=== PATIENT | female | born 1995 | race Caucasian/White ===

== ENCOUNTER → 2018-07-23 09:46 | Outpatient (CLI) | payer MEDICAID, OTHER, SELFPAY ==
[2014-01-06 14:11] VITALS: BMI 26.3
[2018-07-23 10:43] LABS: AST(SGOT) 169 U/L (15-37); Alanine Aminotransfer ALT/SGPT 279 U/L (13-56)
== END ==
PROVIDERS: Family Provider Family Medicine; PCP Family Medicine
DX: E84.9 Cystic fibrosis, unspecified (principal)
CPT/HCPCS: 36415; 82247; 84450; 84460

== ENCOUNTER → 2018-07-25 09:25 | Outpatient (CLI) | payer MEDICAID, OTHER, SELFPAY ==
[2018-07-25 10:14] LABS: AST(SGOT) 128 U/L (15-37); Alanine Aminotransfer ALT/SGPT 214 U/L (13-56); Albumin, Serum 3.7 g/dL (3.2-5.0); Alkaline Phosphatase 248 U/L (45-117); Bilirubin, Direct 0.16 mg/dL (0.00-0.30); GGTP 54 U/L (5-55); Globulin 3.9 g/dL (2.2-4.2); Protein, Total 7.6 g/dL (6.4-8.2)
== END ==
PROVIDERS: Family Provider Family Medicine; PCP Family Medicine
DX: E84.9 Cystic fibrosis, unspecified (principal)
CPT/HCPCS: 36415; 80076; 82977

== ENCOUNTER → 2018-07-30 08:54 | Outpatient (CLI) | payer MEDICAID, OTHER, SELFPAY ==
[2014-01-06 14:11] VITALS: BMI 26.3
[2018-07-30 10:44] LABS: AST(SGOT) 64 U/L (15-37); Alanine Aminotransfer ALT/SGPT 103 U/L (13-56); Albumin, Serum 3.7 g/dL (3.2-5.0); Alkaline Phosphatase 156 U/L (45-117); Bilirubin, Direct 0.11 mg/dL (0.00-0.30); GGTP 37 U/L (5-55); Globulin 3.7 g/dL (2.2-4.2); Protein, Total 7.4 g/dL (6.4-8.2)
== END ==
PROVIDERS: Family Provider Family Medicine; PCP Family Medicine
DX: E84.9 Cystic fibrosis, unspecified (principal); R74.0 Nonspecific elevation of levels of transaminase and lactic acid dehydrogenase [LDH]
CPT/HCPCS: 36415; 80076; 82977

== ENCOUNTER → 2018-08-04 12:59 | Outpatient (CLI) | payer MEDICAID, OTHER, SELFPAY ==
--- NOTE | 2018-08-04 13:55 | RAD_ITS ---
STUDY: X-RAY - ACUTE ABDOMINAL SERIES REASON FOR EXAM: Female, 23 years old. Acute and chronic constipation TECHNIQUE: Single view of the chest. Supine, and erect view(s) of the abdomen were obtained. COMPARISON: None. FINDINGS: The lungs are clear and expanded. Normal size heart. Normal mediastinum and kristine. Normal visualized pulmonary arteries. Normal visualized aortic arch and descending thoracic aorta. There is a moderate amount of colonic fecal material. The soft tissue structures of the abdomen and pelvis are unremarkable. Normal visualized osseous structures. RAD/Acute Abdomen Inc Chest IMPRESSION: Clear lungs. Moderate constipation. Electronically Signed: Abdias Ortiz DO at 8:47 EST Tel , Service support ,
== END ==
LOC: RAD.FUTURE 13:04 → RAD 13:51
PROVIDERS: Family Provider Family Medicine; PCP Family Medicine
DX: K59.00 Constipation, unspecified (principal); E84.9 Cystic fibrosis, unspecified; K86.89 Other specified diseases of pancreas
CPT/HCPCS: 74022

== ENCOUNTER → 2018-08-11 10:40 | Outpatient (CLI) | payer MEDICAID, OTHER, SELFPAY ==
[2018-08-11 12:04] LABS: AST(SGOT) 27 U/L (15-37); Alanine Aminotransfer ALT/SGPT 38 U/L (13-56); Albumin, Serum 3.8 g/dL (3.2-5.0); Alkaline Phosphatase 100 U/L (45-117); Bilirubin, Direct 0.12 mg/dL (0.00-0.30); GGTP 27 U/L (5-55); Globulin 4.1 g/dL (2.2-4.2); Protein, Total 7.9 g/dL (6.4-8.2)
== END ==
PROVIDERS: Family Provider Family Medicine; PCP Family Medicine
DX: E84.9 Cystic fibrosis, unspecified (principal); R74.0 Nonspecific elevation of levels of transaminase and lactic acid dehydrogenase [LDH]
CPT/HCPCS: 36415; 80076; 82977

== ENCOUNTER → 2019-12-07 07:26 | Outpatient (CLI) | payer MEDICAID, OTHER, SELFPAY ==
[2014-01-06 14:11] VITALS: BMI 26.3
[2019-12-07 07:49] LABS: Absolute Lymphocyte Count 1.94 X10^3/uL (0.83-4.51); Absolute Neutrophil Count 3.1 X10^3/uL (2.0-7.7); Basophil# 0.02 X10^3/uL; Basophil% 0.4 % (0-1); Eosinophil# 0.16 X10^3/uL; Eosinophils% 2.8 % (0-5); Hematocrit 38.2 % (37-47); Hemoglobin 12.2 g/dL (12.0-15.0); Lymphocyte # 1.94 X10^3/ul (4.0); Lymphocyte % 34.4 % (19-41); Mean Corp Hgb Conc 31.9 g/dL (32-36); Mean Corpuscular Hgb 28.4 pg (27.0-32.0); Mean Platelet Vol. 8.9 fl (6.2-12.0); Monocyte# 0.45 X10^3/uL; NRBC Flagged by Analyzer 0 % (0-5); Neutrophil # 3.06 X10^3/uL (2.7-7.7); Neutrophil % 54.2 % (47-70); Platelet Count 217 K/mm3 (150-450); RBC Distribution Width CV 14.3 % (11.6-14.6); RBC Distribution Width SD 45.9 fl (35.1-43.9); Red Blood Count 4.29 M/mm3 (4.2-5.4); White Blood Count 5.6 K/mm3 (4.4-11.0)
[2019-12-07 08:18] LABS: Hemoglobin A1c 6.1 % (3.8-5.6)
[2019-12-07 08:26] LABS: AST(SGOT) 11 U/L (15-37); Alanine Aminotransfer ALT/SGPT 21 U/L (13-56); Albumin, Serum 3.7 g/dL (3.2-5.0); Alkaline Phosphatase 60 U/L (45-117); Anion Gap 6 (5-15); BUN 18 mg/dL (7-18); BUN/Creat Ratio 22.5 RATIO (10-20); CRP < 2.90 mg/L (0.0-3.0); Chloride 105 mmol/L (98-107); EST Glomerular Filtration Rate 93 mL/min (>60); Est Glom Filt Rate - Afr Amer 113 mL/min (>60); GGTP 10 U/L (5-55); Globulin 3.6 g/dL (2.2-4.2); Glucose 138 mg/dL (74-106); Potassium 4.2 mmol/L (3.5-5.1); Protein, Total 7.3 g/dL (6.4-8.2); Sodium Level 137 mmol/L (136-145)
== END ==
PROVIDERS: PCP Family Medicine
DX: E84.9 Cystic fibrosis, unspecified (principal); E84.8 Cystic fibrosis with other manifestations; E08.9 Diabetes mellitus due to underlying condition without complications
CPT/HCPCS: 36415; 80053; 82977; 83036; 85025; 86140